=== PATIENT | female | born 1980 | race African-American/Black ===

== ENCOUNTER → 2017-06-07 | Outpatient (CLI) | payer OTHER | LOC: COL.RAD 09:57 | DX: N28.89 Other specified disorders of kidney and ureter (principal); Q62.11 Congenital occlusion of ureteropelvic junction | CPT/HCPCS: A9562 ==

== ENCOUNTER 2017-06-18 09:56 | Observation (INO) | payer OTHER ==
[~2017-06-18] VITALS: Ht 160 cm; Wt 68.2 kg
[2017-06-20] VITALS (12 sets, daily range): BP systolic 113–149; BP diastolic 66–93; PULSE 16–75; TEMP 96.7–99.1
[2017-06-20] MEDS ORDERED: MELATONIN5 M1 PO (06:38)
[2017-06-21 03:36] VITALS: BP 126/70; PULSE 68; TEMP 98.2
[2017-06-21 08:01] VITALS: BP 118/76; PULSE 58; TEMP 98.6
[2017-06-21 11:50] VITALS: BP 124/82; PULSE 63; TEMP 99.1
[2017-06-21 15:38] VITALS: BP 142/86; PULSE 58; TEMP 98.3
[2017-06-21 20:16] VITALS: BP 114/66; PULSE 71; TEMP 98.4
[2017-06-22 00:20] VITALS: BP 115/70; PULSE 63; TEMP 98.2
[2017-06-22 04:19] VITALS: BP 120/75; BP 122/55; PULSE 66; TEMP 97.9; TEMP 98.3
[2017-06-22 07:54] VITALS: BP 141/90; PULSE 63; TEMP 98.5
[2017-06-22 11:53] VITALS: BP 143/88; PULSE 66; TEMP 98.2
== END 2017-06-22 15:00 | disposition home or self-care (01) ==
LOC: INPTSU 06-20 05:39 → JCC 06-20 05:39 → SURG 06-20 07:30 → JCC 06-20 11:45
DX: N13.0 Hydronephrosis with ureteropelvic junction obstruction (principal); I10 Essential (primary) hypertension; E78.5 Hyperlipidemia, unspecified; Z90.79 Acquired absence of other genital organ(s); Z88.8 Allergy status to other drugs, medicaments and biological substances; Z86.718 Personal history of other venous thrombosis and embolism; Z83.3 Family history of diabetes mellitus
CPT/HCPCS: A4314; A9284; C1769; C2617; G0378; J0690; J1100; J1650; J1885; J2405; J2550; J2704; J3010; J7120

== ENCOUNTER → 2017-11-05 | Outpatient (CLI) | payer OTHER ==
[~2017-11-05] MED LIST: MELATONIN5 M1 PO
== END ==
LOC: COL.RAD 13:10
DX: Q62.11 Congenital occlusion of ureteropelvic junction (principal); Z98.890 Other specified postprocedural states
CPT/HCPCS: A9562

== ENCOUNTER → 2022-06-12 | Outpatient (CLI) | payer OTHER | LOC: COL.RAD 11:54 | DX: R10.11 Right upper quadrant pain (principal) | CPT/HCPCS: A9562; J1940 ==